=== PATIENT | male | born 1995 | race Hispanic/Latino ===

== ENCOUNTER 2021-09-22 08:42 | Emergency (ER) | payer OTHER ==
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
[2021-09-22] MEDS ORDERED: ONDANSETRON 4 MG/2 ML INJ IV ONE ×2 (14:36→20:02)
[2021-09-22 18:10] LABS: Basophils % (Auto) 0.4 % (0.0-1.8); Eosinophils # (Auto) 0.2 K/mm3 (0.0-0.4); Eosinophils % (Auto) 1.8 % (0.0-4.3); Hemoglobin 13.7 gm/dl (11.8-15.2); Lymphocytes # (Auto) 1.9 K/mm3 (1.2-5.4); Lymphocytes % (Auto) 21.8 % (13.4-35.0); Mean Corpuscular HGB Conc 33 % (32-34); Mean Corpuscular Volume 92 fl (84-94); Monocytes # (Auto) 0.7 K/mm3 (0.0-0.8); Platelet Count 210 K/mm3 (140-440); Red Blood Count 4.44 M/mm3 (3.65-5.03); Red Cell Distribution Width 13.1 % (13.2-15.2)
[2021-09-22 18:55] LABS: Alanine Aminotransferase 74 units/L (7-56); Albumin 4.1 g/dL (3.9-5); Blood Urea Nitrogen 20 mg/dL (9-20); Calcium 8.9 mg/dL (8.4-10.2); Hemolysis Index 79
[2021-09-22 19:01] LABS: BUN/Creatinine Ratio 33
[2021-09-22] MEDS ORDERED: MORPHINE 4 MG/1 ML INJ IV ONE ×2 (20:01→20:04)
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
[2021-09-22] MEDS ORDERED: SODIUM CHLORIDE 0.9% 1000 ML 1,000 ML IV ONE (20:18)
[2021-09-22] MEDS ORDERED: SODIUM CHLORIDE 0.9% 1000 ML 1,000 ML ONE (20:19)
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
[2021-09-22 22:34] VITALS: BP 106/60
== END 2021-09-22 23:20 | disposition short-term general hospital (02) ==
LOC: ED 08:42
DX: S22.41XA Multiple fractures of ribs, right side, initial encounter for closed fracture (principal); S36.90XA Unspecified injury of unspecified intra-abdominal organ, initial encounter; S36.209A Unspecified injury of unspecified part of pancreas, initial encounter; J45.909 Unspecified asthma, uncomplicated; V89.2XXA Person injured in unspecified motor-vehicle accident, traffic, initial encounter; Y93.89 Activity, other specified; Y92.89 Other specified places as the place of occurrence of the external cause; Y99.8 Other external cause status
CPT/HCPCS: 36415; 70450; 71045; 71260; 72125; 73030; 74177; 80053; 85025; 96361; 96374; 96375; 96376; 99285; J2270; J2405; J7030; Q9967